=== PATIENT | female | born 1960 | race Asian ===

== ENCOUNTER 2018-03-11 11:44 | Day surgery (SDC) | payer OTHER ==
[~2018-03-11] VITALS: Ht 154.9 cm; Wt 52.2 kg
[2018-03-11] MEDS ORDERED: BUPIVACAINE /PF 0.25% 30 ML VIAL INJ ONE (12:32)
[2018-03-11] MEDS ORDERED: LIDOCAINE MPF 2% 5mL VIAL INJ ONE (12:32)
[2018-03-11] MEDS ORDERED: DIPHENHYDRAMINE INJ 50 MG/ML VIAL ONE ×2 (12:32→13:10)
[2018-03-11] MEDS ORDERED: NS 50 ML BAG IV ONE (12:32)
[2018-03-11] MEDS ORDERED: methylPREDNISolone ACETATE 80 MG/ML ONE (12:32)
[2018-03-11] MEDS ORDERED: MIDAZOLAM HCL 5 MG/5 ML VIAL ONE (12:32)
[2018-03-11] MEDS ORDERED: IOHEXOL 50 ML IV ONE (14:07)
[2018-03-11] MEDS: MIDAZOLAM HCL 5 MG/5 ML VIAL ONE ×2 (14:50→14:52)
[2018-03-11 16:26] VITALS: BP_SYST 123
[2018-03-11] MEDS ORDERED: MIDAZOLAM HCL 5 MG/5 ML VIAL IVP ONE (18:00)
[2018-03-11] MEDS ORDERED: LR 500 ML IV ONE (18:00)
[2018-03-11] MEDS ORDERED: DIPHENHYDRAMINE INJ 50 MG/ML VIAL IVP ONE (18:00)
== END 2018-03-11 16:00 | disposition home or self-care (01) ==
LOC: SDS 11:44 → SMU 12:08 → SDS 16:00
PROVIDERS: ATTEND Internal Medicine
DX: M51.16 Intervertebral disc disorders with radiculopathy, lumbar region (principal); M79.1 Myalgia
CPT/HCPCS: 62323; 77003; J1040; J1200; J2001; J2250; J3490; J7120; Q9967